=== PATIENT | male | born 1975 | race Caucasian/White ===

== ENCOUNTER 2019-08-26 11:46 | Emergency (ER) | payer OTHER ==
--- NOTE | 2019-08-26 13:03 | ER ---
DATE SEEN: 08/26/2019 REASON FOR VISIT: Tooth pain. HISTORY OF PRESENT ILLNESS: Karthik is a 44-year-old male complaining of right lower jaw pain for 2 days. Moderate pain, does not improve with over-the- counter regimens. REVIEW OF SYSTEMS: No sore throat or fever. ALLERGIES: Reviewed. PHYSICAL EXAMINATION: VITAL SIGNS: Afebrile, blood pressure 167/79. HEENT: Oral exam reveals dental filling on the right lower jaw molar. There is tenderness to palpation of the jaw. Oropharynx is clear. NECK: Supple, with no lymphadenopathy. IMPRESSION: Dental infection. TREATMENT: 1. Hydrocodone tablets every 6 hours p.r.n. 2. Penicillin in the form of amoxicillin 500 mg p.o. t.i.d. for 10 days. /[id number] CORRINE/BOLA
== END 2019-08-26 12:52 | disposition home or self-care (01) ==
LOC: FB.ED 11:46
DX: K04.7 Periapical abscess without sinus (principal)
CPT/HCPCS: 99281; 99282

== ENCOUNTER 2020-03-18 08:16 | Emergency (ER) | payer OTHER ==
--- NOTE | 2020-03-18 08:41 | EDM.PDOC ---
ED HPI GENERAL MEDICAL PROBLEM - General Chief Complaint: General Stated Complaint: DENTAL PAIN Time Seen by Provider: 03/18/20 08:36 Source of Information: Reports: Patient History Limitations: Reports: No Limitations - History of Present Illness INITIAL COMMENTS - FREE TEXT/NARRATIVE: Patient's left upper lateral incisor broke @1 month ago. Began to have pain in this tooth yesterday. Has a dental appt next week. No relief with Tylenol. Denies F/C. Duration: Day(s): (2) - Related Data Allergies Allergy/AdvReac Type Severity Reaction Status Date / Time No Known Allergies Allergy Verified 03/18/20 08:25 Home Meds: Home Meds Albuterol Sulfate [Albuterol Sulfate Hfa] 2 puff Q4H PRN 08/26/19 [History] Aspirin 81 mg PO DAILY 08/26/19 [History] Dapagliflozin Propanediol [Farxiga] 10 mg DAILY 08/26/19 [History] Losartan Potassium 25 mg DAILY 08/26/19 [History] Simvastatin [Zocor] 10 mg PO BEDTIME 08/26/19 [History] Acetaminophen/HYDROcodone [Mcintyre 325-5 MG] 1 - 2 tab PO Q6H PRN #12 tab 03/18/20 [Rx] Amoxicillin/Potassium Clav [Augmentin 875-125 Tablet] 1 each PO BID #20 tablet 03/18/20 [Rx] Past Medical History Cardiovascular History: Reports: High Cholesterol, Hypertension Respiratory History: Reports: Bronchitis, Recurrent Musculoskeletal History: Reports: Arthritis, Fracture Other Musculoskeletal History: hx R clavicle Psychiatric History: Reports: Anxiety, Depression Endocrine/Metabolic History: Reports: Diabetes, Type II, Obesity/BMI 30+ - Infectious Disease History Infectious Disease History: Reports: Chicken Pox - Past Surgical History HEENT Surgical History: Reports: Oral Surgery Musculoskeletal Surgical History: Reports: Shoulder Surgery Other Musculoskeletal Surgeries/Procedures:: R shoulder surgery Social & Family History - Family History Family Medical History: No Pertinent Family History - Caffeine Use Caffeine Use: Reports: Soda ED ROS GENERAL - Review of Systems Review Of Systems: Comprehensive ROS is negative, except as noted in HPI. ED EXAM, GENERAL - Physical Exam Exam: See Below Exam Limited By: No Limitations General Appearance: Alert, WD/WN, No Apparent Distress Throat/Mouth: No Airway Compromise, Other (Caries present left upper lateral incisor, no obvious abscess.) Respiratory/Chest: No Respiratory Distress Extremities: Normal Range of Motion Neurological: Alert, Normal Cognition Skin Exam: Warm, Dry, Intact, Normal Color Course - Vital Signs Text/Narrative:: Vital signs stable Departure - Departure Time of Disposition: 08:40 Disposition: Home, Self-Care 01 Condition: Good Clinical Impression: Dental infection - Discharge Information *PRESCRIPTION DRUG MONITORING PROGRAM REVIEWED*: Yes *COPY OF PRESCRIPTION DRUG MONITORING REPORT IN PATIENT KAYLA: No Prescriptions: Amoxicillin/Potassium Clav [Augmentin 875-125 Tablet] 1 each PO BID #20 tablet Acetaminophen/HYDROcodone [Mcintyre 325-5 MG] 1 - 2 tab PO Q6H PRN #12 tab PRN Reason: Pain Instructions: Dental Abscess Additional Instructions: Fill the prescriptions for Mcintyre and Augmentin and take as directed. You may also take OTC Ibuprofen as needed. Do not take any additional Acetaminophen containing medications while taking Mcintyre. Keep your Dentist appointment for next week.
== END 2020-03-18 09:00 | disposition home or self-care (01) ==
LOC: FB.ED 08:16
DX: K04.7 Periapical abscess without sinus (principal); E78.00 Pure hypercholesterolemia, unspecified; I10 Essential (primary) hypertension; E11.9 Type 2 diabetes mellitus without complications; E66.9 Obesity, unspecified; Z68.41 Body mass index [BMI] 40.0-44.9, adult; Z79.899 Other long term (current) drug therapy; Z79.82 Long term (current) use of aspirin
CPT/HCPCS: 99282; 99283

== ENCOUNTER 2020-04-08 08:03 | Emergency (ER) | payer OTHER ==
--- NOTE | 2020-04-08 09:02 | EDM.PDOC ---
ED HPI GENERAL MEDICAL PROBLEM - General Chief Complaint: Lower Extremity Injury/Pain Stated Complaint: SHARP PAIN IN TOES Time Seen by Provider: 04/08/20 08:57 Source of Information: Reports: Patient History Limitations: Reports: No Limitations - History of Present Illness INITIAL COMMENTS - FREE TEXT/NARRATIVE: Presents with intermittent stabbing pain to the top of his left foot since 0300 today. A cast was placed on the same leg on 04/04/20 due to foot fracture. Since then the cast has become loose, he is due to have it replaced tomorrow. Patient called nurse on line who advised him to come to the ED for evaluation. Onset Date: 04/08/20 Onset Time: 03:00 Location: Reports: Lower Extremity, Left Quality: Reports: Stabbing Severity: Mild Improves with: Reports: None Worsens with: Reports: None - Related Data Allergies Allergy/AdvReac Type Severity Reaction Status Date / Time No Known Allergies Allergy Verified 04/08/20 08:25 Home Meds: Home Meds Albuterol Sulfate [Albuterol Sulfate Hfa] 2 puff INH Q4H PRN 08/26/19 [History] Aspirin 81 mg PO DAILY 08/26/19 [History] Dapagliflozin Propanediol [Farxiga] 10 mg DAILY 08/26/19 [History] Losartan Potassium 25 mg DAILY 08/26/19 [History] Simvastatin [Zocor] 10 mg PO BEDTIME 08/26/19 [History] Insuln Asp Prot/Insulin Aspart [NovoLOG Mix 70-30] 0 unit SQ ASDIRECTED 04/08/20 [History] Past Medical History Cardiovascular History: Reports: High Cholesterol, Hypertension Respiratory History: Reports: Bronchitis, Recurrent Musculoskeletal History: Reports: Arthritis, Fracture Other Musculoskeletal History: hx R clavicle Psychiatric History: Reports: Anxiety, Depression Endocrine/Metabolic History: Reports: Diabetes, Type II, Obesity/BMI 30+ - Infectious Disease History Infectious Disease History: Reports: Chicken Pox - Past Surgical History HEENT Surgical History: Reports: Oral Surgery Musculoskeletal Surgical History: Reports: Shoulder Surgery Other Musculoskeletal Surgeries/Procedures:: R shoulder surgery Social & Family History - Family History Family Medical History: No Pertinent Family History - Caffeine Use Caffeine Use: Reports: Soda Review of Systems - Review of Systems Review Of Systems: Comprehensive ROS is negative, except as noted in HPI. ED EXAM, GENERAL - Physical Exam Exam: See Below Exam Limited By: No Limitations General Appearance: Alert, WD/WN, No Apparent Distress Head: Atraumatic, Normocephalic Neck: Full Range of Motion Respiratory/Chest: No Respiratory Distress Peripheral Pulses: 2+: Dorsalis Pedis (L) Extremities: Normal Capillary Refill, Other (Cast was removed. There is mild left foot edema, and mild point tenderness to dorsum of the left foot overlying the 4th metatarsal, no deformities.) Neurological: Alert, No Motor/Sensory Deficits Skin Exam: Warm, Dry, Intact, Normal Color, No Rash ED TRAUMA EXTREMITY PROCEDURES - Splinting Left Lower Extremity Splint Site: left short leg Pre-Procedure NV Status: Normal Post-Procedure NV Status: Normal Splint Material: Other (Orthoglass) Splint Design: Posterior Applied & Form Fitted By: Provider Provider Post-Splint Application NV Check: NV Status Normal, Good Position Complications: No Course - Vital Signs Last Recorded V/S: T97.6, BP 136/86, RR 18, HR 88, Sa02 100% RA Departure - Departure Time of Disposition: 09:04 Disposition: Home, Self-Care 01 Condition: Good Clinical Impression: Foot pain, left - Discharge Information *PRESCRIPTION DRUG MONITORING PROGRAM REVIEWED*: No *COPY OF PRESCRIPTION DRUG MONITORING REPORT IN PATIENT KAYLA: Not Applicable Instructions: Cast or Splint Care, Adult, [id number] Forms: ED Department Discharge Additional Instructions: Keep the appointment with your Orthopedic Surgeon tomorrow. Return to the ER as needed.
== END 2020-04-08 09:15 | disposition home or self-care (01) ==
LOC: FB.ED 08:03
DX: M79.672 Pain in left foot (principal); E78.00 Pure hypercholesterolemia, unspecified; I10 Essential (primary) hypertension; M19.90 Unspecified osteoarthritis, unspecified site; E11.9 Type 2 diabetes mellitus without complications; E66.9 Obesity, unspecified; Z68.39 Body mass index [BMI] 39.0-39.9, adult; Z79.82 Long term (current) use of aspirin; Z79.899 Other long term (current) drug therapy; Z79.4 Long term (current) use of insulin
CPT/HCPCS: 29515; 99283-25

== ENCOUNTER 2023-12-04 18:14 | Emergency (ER) | payer OTHER ==
[2023-12-04] MEDS ORDERED: Lidocaine 1% 5 ML VIAL INFILT ONE (18:15)
[2023-12-04] MEDS: Diphtheria,Pertussis(Acell),Tetanus Vaccine 0.5 ML Syringe IM ONE (20:21)
== END 2023-12-04 20:34 | disposition home or self-care (01) ==
LOC: FB.ED 18:14
DX: S61.012A Laceration without foreign body of left thumb without damage to nail, initial encounter (principal); E78.00 Pure hypercholesterolemia, unspecified; I10 Essential (primary) hypertension; E11.9 Type 2 diabetes mellitus without complications; E66.9 Obesity, unspecified; Z68.41 Body mass index [BMI] 40.0-44.9, adult; F17.210 Nicotine dependence, cigarettes, uncomplicated; Z79.82 Long term (current) use of aspirin; Z79.4 Long term (current) use of insulin; Z79.899 Other long term (current) drug therapy; Z23 Encounter for immunization; W26.0XXA Contact with knife, initial encounter
CPT/HCPCS: 12002; 90471; 90715; 99283-25

== ENCOUNTER 2024-01-28 07:40 | Day surgery (SDC) | payer OTHER ==
[2024-01-28] MEDS ORDERED: Lidocaine 2% 100 MG/5 ML Syringe IVPUSH ONE (07:41)
[2024-01-28] MEDS ORDERED: Propofol 200 MG/20 ML SDV IV ONE (07:41)
[2024-01-28] MEDS ORDERED: Midazolam 1 MG/ML 2 ML SDV IV ONE (07:41)
[2024-01-28] MEDS ORDERED: Sodium Chloride 0.9% 10 ML Syringe FLUSH PRN (07:45)
[2024-01-28] MEDS: Lactated Ringers 1,000 ML IV SCH (09:05)
[2024-01-28] MEDS: Simethicone Drops 40 MG/0.6 ML 30 ML Bottle ONE (09:20)
== END 2024-01-28 10:33 | disposition home or self-care (01) ==
LOC: FB.SDS 07:40
PROVIDERS: ATTEND Surgery
DX: K31.89 Other diseases of stomach and duodenum (principal); K62.5 Hemorrhage of anus and rectum; E11.9 Type 2 diabetes mellitus without complications; I10 Essential (primary) hypertension; E78.5 Hyperlipidemia, unspecified; E66.01 Morbid (severe) obesity due to excess calories; Z68.41 Body mass index [BMI] 40.0-44.9, adult; F17.210 Nicotine dependence, cigarettes, uncomplicated; Z79.82 Long term (current) use of aspirin; Z79.4 Long term (current) use of insulin; Z79.899 Other long term (current) drug therapy
CPT/HCPCS: 00731; 43239; 82947; 88305; A9270; J2250; J2704; J7120

== ENCOUNTER 2024-05-15 15:45 | Emergency (ER) | payer OTHER, MEDICARE, MEDICAID | END 2024-05-15 18:25 | disposition home or self-care (01) | LOC: FB.ED 15:45 | DX: S80.02XA Contusion of left knee, initial encounter (principal); I10 Essential (primary) hypertension; E78.00 Pure hypercholesterolemia, unspecified; E11.9 Type 2 diabetes mellitus without complications; E66.9 Obesity, unspecified; F17.200 Nicotine dependence, unspecified, uncomplicated; Z96.652 Presence of left artificial knee joint; Z79.899 Other long term (current) drug therapy; Z79.4 Long term (current) use of insulin; Z79.1 Long term (current) use of non-steroidal anti-inflammatories (NSAID); Z68.41 Body mass index [BMI] 40.0-44.9, adult; Z79.84 Long term (current) use of oral hypoglycemic drugs; W18.30XA Fall on same level, unspecified, initial encounter; Y93.89 Activity, other specified | CPT/HCPCS: 73562-LT; 99283 ==

== ENCOUNTER 2024-07-12 01:50 | Emergency (ER) | payer OTHER, MEDICARE, MEDICAID ==
[2024-07-12] MEDS: Amoxicillin/Clavulanate K 875-125 MG Tab PO ONE (02:16)
== END 2024-07-12 02:30 | disposition home or self-care (01) ==
LOC: FB.ED 01:50
DX: H69.93 Unspecified Eustachian tube disorder, bilateral (principal); J06.9 Acute upper respiratory infection, unspecified; B97.89 Other viral agents as the cause of diseases classified elsewhere; I10 Essential (primary) hypertension; E66.9 Obesity, unspecified; E11.9 Type 2 diabetes mellitus without complications; E78.00 Pure hypercholesterolemia, unspecified; M19.90 Unspecified osteoarthritis, unspecified site; Z79.899 Other long term (current) drug therapy; Z79.1 Long term (current) use of non-steroidal anti-inflammatories (NSAID); Z68.41 Body mass index [BMI] 40.0-44.9, adult
CPT/HCPCS: 99283; A9270